=== PATIENT | female | born 1970 | race Caucasian/White ===

== ENCOUNTER 2016-12-24 08:41 | Day surgery (SDC) | payer OTHER ==
[2016-12-24] MEDS ORDERED: Lactated Ringer's 1,000 ML IV ONE (11:00)
--- NOTE | 2016-12-24 11:05 | CP.SDSHP ---
Same Day Surgery H & P - History Proposed Procedure: EGD Pre-Op Diagnosis: SEE NOTES - Previous Medical/Surgical History Cardiac: Hypertension Endocrine/Metabolic: Diabetes Pain: 4.Moderate Pain - Allergies Allergies: Allergies No Known Allergies Allergy (Verified 12/24/16 09:26) - Physical Exam General Appearance: N Vital Signs: Vital Signs 12/24/16 09:10 Temperature 97.6 F Pulse Rate 79 Respiratory 19 Rate Blood Pressure 106/61 O2 Sat by Pulse 98 Oximetry Mental Status: Alert & Oriented x3 Neuro: WNL Heart: Other Lungs: WNL GI: Other - {Optional Preform as Required} Breast: WNL Abdomen: Other Rectal: Other Integument: WNL : WNL Ortho: WNL ENT: WNL - Impression Pt. Evaluated Today:Candidate for Anesthesia & Procedure: Yes - Date & Time Time: 11:04 Short Stay Discharge - Short Stay Discharge Admitting Diagnosis/Reason for Visit: DYSPEPSIA Disposition: HOME/ ROUTINE
[2016-12-24] MEDS ORDERED: Propofol 10 mg/ml Inj (20 ML) ONE (11:10)
[2016-12-24] MEDS ORDERED: Belladonna-Phenobarbital PO ONE (11:30)
[2016-12-24] MEDS ORDERED: Pantoprazole 40 mg EC Tab PO ONE (11:35)
[2016-12-24 12:44] VITALS: O2SAT 100
[2016-12-24 12:45] VITALS: TEMP 97.8
[2016-12-24 12:49] VITALS: BP 113/73; PULSE 71; RESP 15
== END 2016-12-24 12:30 | disposition home or self-care (01) ==
LOC: C.ENDO 08:41
PROVIDERS: ATTEND Specialist
DX: K21.0 Gastro-esophageal reflux disease with esophagitis (principal); K44.9 Diaphragmatic hernia without obstruction or gangrene; K29.00 Acute gastritis without bleeding; K29.50 Unspecified chronic gastritis without bleeding; B96.81 Helicobacter pylori [H. pylori] as the cause of diseases classified elsewhere; I10 Essential (primary) hypertension; E11.9 Type 2 diabetes mellitus without complications; Z98.890 Other specified postprocedural states; Z79.899 Other long term (current) drug therapy
CPT/HCPCS: 43239; 82948; 84703; 88305; J2704; J7120